=== PATIENT | male | born 1985 | race Caucasian/White ===

== ENCOUNTER 2018-11-21 17:35 | Emergency (ER) | payer OTHER, MEDICAID ==
[2018-11-21] MEDS: KETOROLAC 60 MG INJ IM (18:22)
== END 2018-11-21 19:05 | disposition home or self-care (01) ==
LOC: E/R 17:35
DX: S43.402A Unspecified sprain of left shoulder joint, initial encounter (principal); I10 Essential (primary) hypertension; E66.9 Obesity, unspecified; X50.1XXA Overexertion from prolonged static or awkward postures, initial encounter; Y92.89 Other specified places as the place of occurrence of the external cause; Z68.42 Body mass index [BMI] 45.0-49.9, adult
CPT/HCPCS: 73030; 93005; 96372; 99284-25